=== PATIENT | male | born 1990 | race Caucasian/White ===

== ENCOUNTER 2018-03-03 23:37 | Emergency (ER) | payer OTHER ==
[2018-03-03 23:44] VITALS: O2SAT 100
[2018-03-03] MEDS ORDERED: Sodium Chloride 0.9% 1,000 ML IV ONE (23:56)
--- NOTE | 2018-03-03 23:57 | C.PDOC ---
History Of Present Illness 27 year old with no prior history presents to the ED c/o abdominal pain for the past 3 weeks. Patient was seen at a previous institution with negative imaging. Patient was seen at [facility] 2 days ago and sent home as ell. Patient has an appointment with his doctor in the morning but presents to the ED because pain worsened. Patient denies fever, chills, nausea, vomit, diarrhea, back pain, weakness, numbness. Time Seen by Provider: 03/03/18 23:53 Chief Complaint (Nursing): Abdominal Pain History Per: Patient History/Exam Limitations: no limitations Onset/Duration Of Symptoms: Days Current Symptoms Are (Timing): Still Present Location Of Pain/Discomfort: Diffuse Quality Of Discomfort: "Pain" Associated Symptoms: denies: Nausea, Vomiting, Diarrhea, Urinary Symptoms Alleviating Factors: None Recent travel outside of the [place]: No Additional History Per: Patient Past Medical History Reviewed: Historical Data, Nursing Documentation, Vital Signs Vital Signs: Last Vital Signs Temp 98.0 F 03/03/18 23:40 Pulse 89 03/03/18 23:40 Resp 16 03/03/18 23:40 BP 130/84 03/03/18 23:40 Pulse Ox 100 03/03/18 23:40 - Medical History PMH: No Chronic Diseases Surgical History: No Surg Hx Family History: States: Unknown Family Hx - Social History Hx Alcohol Use: No Hx Substance Use: Yes Review Of Systems Constitutional: Negative for: Fever, Chills Cardiovascular: Negative for: Chest Pain Respiratory: Negative for: Shortness of Breath Gastrointestinal: Positive for: Abdominal Pain. Negative for: Nausea, Vomiting, Diarrhea Genitourinary: Negative for: Dysuria, Hematuria Musculoskeletal: Negative for: Back Pain Skin: Negative for: Rash Neurological: Negative for: Weakness, Numbness Physical Exam - Physical Exam Appears: Non-toxic, No Acute Distress Skin: Normal Color, Warm, Dry Head: Atraumatic, Normacephalic Eye(s): bilateral: Normal Inspection Neck: Normal ROM, Supple Chest: Symmetrical Cardiovascular: Rhythm Regular Respiratory: Normal Breath Sounds, No Rales, No Rhonchi, No Wheezing Gastrointestinal/Abdominal: Soft, Tenderness (epigastric and LLQ), No Guarding, No Rebound Back: No CVA Tenderness Extremity: Normal ROM, No Tenderness, No Swelling Neurological/Psych: Oriented x3, Normal Speech, Normal Cognition Gait: Steady ED Course And Treatment - Laboratory Results Result Diagrams: 03/04/18 00:14 03/04/18 00:14 O2 Sat by Pulse Oximetry: 100 (ON RA) Pulse Ox Interpretation: Normal Medical Decision Making Medical Decision Making: ro gastrits pud colitis Plan: * Labs * CXR * Protonix 40 mg IVP * IV fluids * Zofran 4 mg iVP * UA labs neg. cxr neg as read by me. refuses any furhter er w/u. states had neg recent ct. will followup with pmd in am. strict return precautions advised. pt verbalizes understanding. Disposition - Disposition Referrals: Shonna Grimm [Staff Provider] - Disposition: HOME/ ROUTINE Disposition Time: 01:30 Condition: STABLE Additional Instructions: please follow up with your doctor and specialist. reutrn to er with worsening. you are delcing a urine test and ct scan. Prescriptions: Pantoprazole Sodium [Protonix] 40 mg PO DAILY #10 ect Instructions: Acute Abdomen (Belly Pain) Forms: [employer] (Macedonian) - Clinical Impression Clinical Impression: Abdominal pain - Scribe Statement The provider has reviewed the documentation as recorded by the Scribe Alexandro Briseno All medical record entries made by the Scribe were at my direction and personally dictated by me. I have reviewed the chart and agree that the record accurately reflects my personal performance of the history, physical exam, medical decision making, and the department course for this patient. I have also personally directed, reviewed, and agree with the discharge instructions and disposition.
[2018-03-04] MEDS ORDERED: Sodium Chloride 0.9% 1,000 ML ONE (00:03)
[2018-03-04 00:41] LABS: INR 1.3; PROTHROMBIN TIME 14.3 SECONDS (9.7-12.2)
[2018-03-04 00:45] LABS: BASO # 0.1 K/uL (0.0-0.2); BASO % 1.2 % (0.0-2.0); EOS % 0.3 % (0.0-4.0); HEMOGLOBIN 14.9 g/dL (12.0-18.0); LYMPH # 1.6 K/uL (1.0-4.3); MEAN CELL VOLUME 84.6 fL (80.0-94.0); MEAN CORPUSCULAR HEMOGLOBIN 28.5 pg (27.0-31.0); MEAN CORPUSCULAR HGB CONC 33.7 g/dL (33.0-37.0); MEAN PLATELET VOLUME 9.5 fL (7.2-11.7); MONO # 0.7 K/uL (0.0-0.8); MONO % 12.8 % (0.0-10.0); NEUT # 3.3 K/uL (1.8-7.0); NEUT % 57.7 % (50.0-75.0); RBC 5.2 Mil/uL (4.40-5.90); WHITE BLOOD COUNT 5.7 K/uL (4.8-10.8)
[2018-03-04 01:05] LABS: ALB/GLOB RATIO 1.5 (1.0-2.1); ALBUMIN 4.5 g/dL (3.5-5.0); ALT/SGPT 22 U/L (21-72); AST/SGOT 24 U/L (17-59); BILIRUBIN,DIRECT 0.5 mg/dL (0.0-0.4); BLOOD UREA NITROGEN 9 mg/dL (9-20); CALCIUM 9.5 mg/dl (8.6-10.4); GFR NON-AFRICAN AMERICAN > 60; LIPASE 113 U/L (23-300)
[2018-03-04] MEDS ORDERED: Potassium Chloride 20 mEq ER Tab PO STA (01:05)
[2018-03-04] MEDS ORDERED: Potassium Chloride 20 mEq ER Tab PO ONE (01:22)
[2018-03-04 01:29] VITALS: BP 115/70; PULSE 73; RESP 20; TEMP 98.6
--- NOTE | 2018-03-04 07:58 | RAD ---
Date of service: 03/04/2018 HISTORY: abd pain COMPARISON: No prior. FINDINGS: LUNGS: No active pulmonary disease. PLEURA: No significant pleural effusion identified, no pneumothorax apparent. CARDIOVASCULAR: No aortic atherosclerotic calcification present. Normal cardiac size. No pulmonary vascular congestion. OSSEOUS STRUCTURES: No significant abnormalities. VISUALIZED UPPER ABDOMEN: Normal. OTHER FINDINGS: None. IMPRESSION: No active disease.
== END 2018-03-04 01:31 | disposition home or self-care (01) ==
LOC: C.ER 23:37
DX: R10.9 Unspecified abdominal pain (principal)
CPT/HCPCS: 71045; 80053; 82248; 83690; 85025; 85610; 85730; 96361; 96374; 96375; 99284; C9113; J2405; J7030